=== PATIENT | female | born 1930 | race Caucasian/White ===

== ENCOUNTER 2021-02-25 09:25 | Day surgery (SDC) | payer MEDICARE, BC ==
[2021-02-25] VITALS (15 sets, daily range): BP systolic 166–214; BP diastolic 65–108
[~2021-02-25] VITALS: Ht 167.6 cm; Wt 57.2 kg
[2021-02-25] MEDS ORDERED: normal saline 1000ml 1,000 ML IV SCH (09:55)
[2021-02-25] MEDS ORDERED: fentaNYL/PF 50MCG/1 ML 2ML syringe IV ONE (09:55)
[2021-02-25] MEDS ORDERED: MIDAZolam 1mg/ml 10ml vial IV ONE (09:55)
[2021-02-25] MEDS ORDERED: FURO-150 PO (10:21)
[2021-02-25] MEDS ORDERED: POTA10TA19 PO (10:21)
[2021-02-25] MEDS ORDERED: CLON-528 PO (10:21)
[2021-02-25] MEDS ORDERED: DIAZ5TAB22 PO (10:21)
[2021-02-25] MEDS ORDERED: CHOL400T57 PO (10:21)
[2021-02-25] MEDS ORDERED: CARV25TA PO (10:21)
[2021-02-25] MEDS ORDERED: LISI40TA13 PO (10:21)
[2021-02-25] MEDS ORDERED: OMEG-79 PO (10:21)
[2021-02-25] MEDS ORDERED: RED600TA PO (10:21)
[2021-02-25] MEDS ORDERED: DRON400T7 PO (10:21)
[2021-02-25] MEDS ORDERED: RIVA20TA PO (10:21)
[2021-02-25 10:26] LABS: EOSINOPHILS # (AUTO) 0.1 X10'3 (0-0.9); EOSINOPHILS % (AUTO) 1.5 % (0-6); HEMATOCRIT 34.3 % (35.0-45.0); HEMOGLOBIN 11.6 g/dl (12.0-16.0); LYMPHOCYTES % (AUTO) 21.5 % (21-51); MEAN CORPUSCULAR HEMOGLOBIN 31.9 PG (27.0-31.0); MEAN CORPUSCULAR HGB CONC 33.9 g/dL (33.0-36.5); MEAN CORPUSCULAR VOLUME 94.2 FL (78-98); MEAN PLATELET VOLUME 8.4 FL (7.4-10.4); MONOCYTES # (AUTO) 0.3 X10'3 (0-0.9); MONOCYTES % (AUTO) 6.1 % (2-12); NEUTROPHILS # (AUTO) 3.2 X10'3 (1.8-7.7); NEUTROPHILS % (AUTO) 69.9 % (42-75); PLATELET COUNT 178 X10'3 (140-440); RED BLOOD COUNT 3.64 X10'6 (4.20-5.60); RED CELL DISTRIBUTION WIDTH 13.5 % (11.5-14.5); WHITE BLOOD COUNT 4.5 X10'3 (4.5-11.0)
[2021-02-25 10:34] LABS: ALBUMIN 3.3 G/DL (3.4-5.0); ANION GAP 8 (8-16); BLOOD UREA NITROGEN 21 MG/DL (7-18); BUN/CREATININE RATIO 22.6 (6.6-38.0); CALCIUM 8.8 MG/DL (8.5-10.1); CHLORIDE 101 MMOL/L (99-107); CREATININE 0.93 MG/DL (0.40-0.90); GLUCOSE 103 MG/DL (70-104); MAGNESIUM 1.9 MG/DL (1.5-2.4); POTASSIUM 3.6 MMOL/L (3.5-5.1); SODIUM 140 MMOL/L (135-145); TOTAL CARBON DIOXIDE 30.8 MMOL/L (24-32); eGFR 57 ML/MIN
== END 2021-02-25 13:10 | disposition home or self-care (01) ==
LOC: SSTAY O 09:25
PROVIDERS: ATTEND Internal Medicine Cardiovascular Disease
DX: I48.0 Paroxysmal atrial fibrillation (principal); I11.0 Hypertensive heart disease with heart failure; I50.9 Heart failure, unspecified; I42.8 Other cardiomyopathies; I35.0 Nonrheumatic aortic (valve) stenosis; E78.5 Hyperlipidemia, unspecified; F41.9 Anxiety disorder, unspecified; M19.90 Unspecified osteoarthritis, unspecified site; Z88.5 Allergy status to narcotic agent; Z88.8 Allergy status to other drugs, medicaments and biological substances; Z85.3 Personal history of malignant neoplasm of breast; Z79.01 Long term (current) use of anticoagulants; Z79.899 Other long term (current) drug therapy; Z90.710 Acquired absence of both cervix and uterus; Z98.890 Other specified postprocedural states; Z96.659 Presence of unspecified artificial knee joint
CPT/HCPCS: 36415; 80048; 83735; 85025; 85610; 92960; 93005; J2250; J3010; J7030

== ENCOUNTER 2021-06-13 07:00 | Day surgery (SDC) | payer MEDICARE, BC ==
[2021-06-13] VITALS (11 sets, daily range): BP systolic 130–211; BP diastolic 54–123
[~2021-06-13] VITALS: Ht 167.6 cm; Wt 57.0 kg
[~2021-06-13 07:00] MED LIST: CARV25TA PO; CHOL400T57 PO; CLON-528 PO; DIAZ5TAB22 PO; DRON400T7 PO; FURO-150 PO; LISI40TA13 PO; OMEG-79 PO; POTA10TA19 PO; RED600TA PO; RIVA20TA PO
[2021-06-13] MEDS ORDERED: MIDAZolam 1mg/ml 10ml vial IV ONE ×2 (07:25→08:05)
[2021-06-13] MEDS ORDERED: fentaNYL/PF 50MCG/1 ML 2ML syringe IV ONE (07:25)
[2021-06-13] MEDS ORDERED: normal saline 1000ml 1,000 ML IV SCH (07:25)
[2021-06-13] MEDS ORDERED: UBID1CAP54 PO (07:40)
[2021-06-13] MEDS ORDERED: POTA20TA19 PO (07:40)
[2021-06-13] MEDS ORDERED: LABE100T5 PO (07:40)
[2021-06-13] MEDS ORDERED: CLON0.2T PO (07:40)
[2021-06-13 08:16] LABS: ALBUMIN 3.3 G/DL (3.4-5.0); ANION GAP 8 (8-16); BLOOD UREA NITROGEN 23 MG/DL (7-18); BUN/CREATININE RATIO 24.7 (6.6-38.0); CALCIUM 8.6 MG/DL (8.5-10.1); CHLORIDE 103 MMOL/L (99-107); CREATININE 0.93 MG/DL (0.40-0.90); GLUCOSE 102 MG/DL (70-104); MAGNESIUM 1.9 MG/DL (1.5-2.4); POTASSIUM 3.7 MMOL/L (3.5-5.1); SODIUM 139 MMOL/L (135-145); TOTAL CARBON DIOXIDE 27.9 MMOL/L (24-32); eGFR 57 ML/MIN
[2021-06-13 08:29] LABS: BASOPHILS # (AUTO) 0.1 X10'3 (0-0.2); EOSINOPHILS # (AUTO) 0.1 X10'3 (0-0.9); EOSINOPHILS % (AUTO) 3.1 % (0-6); HEMOGLOBIN 11.6 g/dl (12.0-16.0); LYMPHOCYTES # (AUTO) 0.8 X10'3 (1.1-4.8); LYMPHOCYTES % (AUTO) 18.8 % (21-51); MEAN CORPUSCULAR HEMOGLOBIN 30.7 PG (27.0-31.0); MEAN CORPUSCULAR HGB CONC 33.1 g/dL (33.0-36.5); MEAN CORPUSCULAR VOLUME 92.9 FL (78-98); MEAN PLATELET VOLUME 8.8 FL (7.4-10.4); MONOCYTES # (AUTO) 0.3 X10'3 (0-0.9); MONOCYTES % (AUTO) 6.9 % (2-12); PLATELET COUNT 175 X10'3 (140-440); RED BLOOD COUNT 3.76 X10'6 (4.20-5.60); RED CELL DISTRIBUTION WIDTH 14.1 % (11.5-14.5); WHITE BLOOD COUNT 4.4 X10'3 (4.5-11.0)
[2021-06-13 09:11] LABS: NEUTROPHILS % (AUTO) 69.9 % (42-75)
[2021-06-13] MEDS ORDERED: cloNIDine 0.1 mg tablet PO ONE (09:20)
== END 2021-06-13 10:45 | disposition home or self-care (01) ==
LOC: SSTAY O 07:00
PROVIDERS: ATTEND Internal Medicine Cardiovascular Disease
DX: I48.0 Paroxysmal atrial fibrillation (principal); I10 Essential (primary) hypertension; I42.8 Other cardiomyopathies; I35.0 Nonrheumatic aortic (valve) stenosis; E78.5 Hyperlipidemia, unspecified; F41.9 Anxiety disorder, unspecified; M19.90 Unspecified osteoarthritis, unspecified site; Z79.01 Long term (current) use of anticoagulants; Z79.899 Other long term (current) drug therapy; Z85.3 Personal history of malignant neoplasm of breast; Z88.8 Allergy status to other drugs, medicaments and biological substances; Z88.5 Allergy status to narcotic agent
CPT/HCPCS: 36415; 80048; 83735; 85025; 85610; 92960; 93005; J2250; J3010; J7030